=== PATIENT | male | born 1965 | race African-American/Black ===

== ENCOUNTER 2021-12-20 05:48 | Inpatient (IN) | payer SELFPAY ==
[~2021-12-20] VITALS: Ht 182.9 cm; Wt 59.9 kg
[2021-12-20] VITALS (42 sets, daily range): BP systolic 144–199; BP diastolic 80–124
[2021-12-20 06:11] LABS: HEMATOCRIT. 34.9 % (42.0-52.0); HEMOGLOBIN. 11.1 g/dL (14.0-18.0); MEAN CORPUSCULAR HEMOGLOBIN 26.2 pg (28.0-32.0); MEAN CORPUSCULAR VOLUME 82.9 fL (80.0-94.0); MEAN PLATELET VOLUME 9.6 fl (7.4-10.4); PLATELET 256 x1000/uL (130-400); RED BLOOD CELL COUNT 4.22 mill/uL (4.7-6.1); RED CELL DISTRIBUTION WIDTH 20.7 % (11.6-14.6)
[2021-12-20 06:14] LABS: CHLORIDE 108 mEq/L (98-107)
[2021-12-20] MEDS ORDERED: NITROGLYCERIN OINT 1GM/INCH UDPKT TD ONE (06:15)
[2021-12-20] MEDS ORDERED: LORAZEPAM 2MG/ML CPJ IV ONE (06:15)
[2021-12-20] MEDS ORDERED: METHYLPREDNISOLONE SOD SUCC 125 MG/2 ML VIAL IV ONE (06:15)
[2021-12-20 06:18] LABS: ETHANOL BLOOD < 10 mg/dL
[2021-12-20] MEDS ORDERED: VECURONIUM BROMIDE 10 MG/VIAL IV ONE ×2 (06:30→08:18)
[2021-12-20] MEDS ORDERED: NITROGLYCERIN 50MG PREMIX 250 ML IV ONE (06:30)
[2021-12-20] MEDS ORDERED: ETOMIDATE 2MG/ML 10ML VIAL IV ONE ×3 (06:30→08:18)
[2021-12-20 06:36] LABS: PLATELET ESTIMATE NORMAL
[2021-12-20 07:46] LABS: *AMPHETAMINES SCREEN URINE NEGATIVE (NEGATIVE); *BARBITURATES SCREEN URINE NEGATIVE (NEGATIVE); *BENZODIAZEPINES SCREEN URINE NEGATIVE (NEGATIVE); *COCAINE SCREEN URINE PRESUMTIVE POSITIVE (NEGATIVE); METHADONE URINE SCREEN NEGATIVE (NEGATIVE); OPIATES URINE SCREEN NEGATIVE (NEGATIVE)
[2021-12-20 07:47] LABS: CANNABINOID URINE SCREEN NEGATIVE (NEGATIVE); PHENCYCLIDINE URINE SCREEN NEGATIVE (NEGATIVE)
[2021-12-20 08:13] LABS: BG BASE EXCESS -0.2 mmol/L (-2.0-2.0); BG CARBOXYHEMOGLOBIN 0.7 % (0.5-1.5); BG DEOXYHEMOGLOBIN 0.3 % (0.0-5.0); BG FRACTION INSPIRED OXYGEN 100; BG HCO3 ACT 26.1 mmol/L (22.0-26.0); BG METHEMOGLOBIN 0.2 % (0.0-1.5); BG OXYGEN SATURATION 99.7 % (92.0-98.5); BG OXYHEMOGLOBIN 98.8 % (94.0-97.0); BG PCO2 50.9 mmHg (35.0-45.0); BG PH 7.328 (7.350-7.450); BG PO2 437.8 mmHg (75.0-100.0); BG SAMPLE SITE RIGHT RADIAL; BG VENT MODE VENT - AC
[2021-12-20] MEDS ORDERED: SODIUM CHLORIDE 0.9% 10ML VIAL ONE (08:18)
[2021-12-20] MEDS: PROPOFOL 10MG/ML 100ML 100 ML IV SCH ×2 (09:31→11:33)
[2021-12-20] MEDS ORDERED: IPRATROPIUM/ALBUTEROL 0.5-3(2.5)MG/3ML NEB HHN PRN (09:45)
[2021-12-20] MEDS ORDERED: PROPOFOL 10MG/ML 100ML 100 ML IV PRN (09:45)
[2021-12-20] MEDS ORDERED: FENTANYL CITRATE/PF 2,500 MCG in SODIUM CHLORIDE 0.9% 200 ML IV PRN (09:45)
[2021-12-20] MEDS: PANTOPRAZOLE SODIUM 40 MG/VIAL IV SCH (10:31)
[2021-12-20] MEDS: METHYLPREDNISOLONE SOD SUCC 40 MG/ML VIAL IV SCH ×2 (10:31→19:19)
[2021-12-20] MEDS ORDERED: NITROGLYCERIN 0.4MG TABLET SL SL PRN ×2 (10:45→11:45)
[2021-12-20] MEDS ORDERED: DEXT 5%/0.45% NACL 1000ML 1,000 ML IV SCH (10:45)
[2021-12-20] MEDS ORDERED: LEVOFLOXACIN 500MG PREMIX 100 ML IV SCH (10:45)
[2021-12-20] MEDS ORDERED: DOCUSATE SODIUM 100MG CAPSULE PO PRN ×2 (10:45→11:45)
[2021-12-20] MEDS ORDERED: CLONIDINE 0.1MG TABLET PO PRN ×2 (10:45→11:45)
[2021-12-20] MEDS ORDERED: ACETAMINOPHEN 325MG TABLET PO PRN ×4 (10:45→11:45)
[2021-12-20] MEDS ORDERED: GUAIFENESIN 200MG/10ML SUGAR FREE UDC PO PRN ×2 (10:45→11:45)
[2021-12-20] MEDS ORDERED: ONDANSETRON HCL 4MG/2ML INJ IV PRN ×2 (10:45→11:45)
[2021-12-20] MEDS ORDERED: MAGNESIUM/ALUMINUM HYDROXIDE/SIMETHICONE 30ML UDC PO PRN ×2 (10:45→11:45)
[2021-12-20 11:11] LABS: FOLIC ACID (FOLATE) SERUM > 20.00 ng/mL (>5.38)
[2021-12-20 11:20] LABS: VITAMIN B12 SERUM 286 pg/mL (211-911)
[2021-12-20] MEDS: DEXT 5%/0.45% NACL 1000ML 1,000 ML IV SCH ×2 (11:45→22:22)
[2021-12-20] MEDS ORDERED: DILTIAZEM HCL 60MG TABLET PO SCH (12:00)
[2021-12-20] MEDS: IPRATROPIUM/ALBUTEROL 0.5-3(2.5)MG/3ML NEB HHN SCH ×2 (14:29→20:46)
[2021-12-20] MEDS: DILTIAZEM HCL 60MG TABLET PO SCH ×2 (15:35→21:48)
[2021-12-20] MEDS: NITROGLYCERIN OINT 1GM/INCH UDPKT TD SCH ×2 (15:36→21:48)
[2021-12-20] MEDS: LEVOFLOXACIN 500MG PREMIX 100 ML IV SCH (15:36)
[2021-12-20] MEDS: ENOXAPARIN 80MG/0.8ML SYR SUBCUT SCH (15:36)
[2021-12-20] MEDS ORDERED: NICARDIPINE 100 MG in SODIUM CHLORIDE 0.9% 60 ML IV PRN (16:30)
[2021-12-20] MEDS: NICARDIPINE 50 MG in SODIUM CHLORIDE 0.9% 250 ML IV PRN ×2 (17:16→22:30)
[2021-12-20] MEDS: PROPOFOL 10MG/ML 100ML 100 ML IV PRN ×2 (18:03→21:55)
[2021-12-21] VITALS (96 sets, daily range): BP systolic 126–177; BP diastolic 71–128
[2021-12-21] MEDS: DEXT 5%/0.45% NACL 1000ML 1,000 ML IV SCH ×2 (01:18→12:00)
[2021-12-21] MEDS: IPRATROPIUM/ALBUTEROL 0.5-3(2.5)MG/3ML NEB HHN SCH ×4 (01:28→20:42)
[2021-12-21] MEDS: ENOXAPARIN 80MG/0.8ML SYR SUBCUT SCH ×2 (02:12→14:41)
[2021-12-21] MEDS: METHYLPREDNISOLONE SOD SUCC 40 MG/ML VIAL IV SCH ×3 (02:12→17:26)
[2021-12-21] MEDS: NICARDIPINE 50 MG in SODIUM CHLORIDE 0.9% 250 ML IV PRN ×5 (03:08→23:42)
[2021-12-21] MEDS: PROPOFOL 10MG/ML 100ML 100 ML IV PRN ×5 (04:14→22:20)
[2021-12-21] MEDS: DILTIAZEM HCL 60MG TABLET PO SCH ×4 (04:19→22:12)
[2021-12-21] MEDS: NITROGLYCERIN OINT 1GM/INCH UDPKT TD SCH ×3 (06:48→22:11)
[2021-12-21 08:22] LABS: HEMATOCRIT. 32.1 % (42.0-52.0); HEMOGLOBIN. 10.4 g/dL (14.0-18.0); MEAN CORPUSCULAR HEMOGLOBIN 26.4 pg (28.0-32.0); MEAN CORPUSCULAR VOLUME 81.7 fL (80.0-94.0); MEAN PLATELET VOLUME 10.4 fl (7.4-10.4); PLATELET 276 x1000/uL (130-400); RED BLOOD CELL COUNT 3.93 mill/uL (4.7-6.1); RED CELL DISTRIBUTION WIDTH 20.9 % (11.6-14.6)
[2021-12-21 08:34] LABS: PHOSPHORUS 2.9 mg/dL (2.5-4.9)
[2021-12-21 08:45] LABS: BG BASE EXCESS 0.4 mmol/L (-2.0-2.0); BG CARBOXYHEMOGLOBIN 0.3 % (0.5-1.5); BG DEOXYHEMOGLOBIN 1.6 % (0.0-5.0); BG FRACTION INSPIRED OXYGEN 100; BG HCO3 ACT 24.6 mmol/L (22.0-26.0); BG METHEMOGLOBIN 0.2 % (0.0-1.5); BG OXYGEN SATURATION 98.4 % (92.0-98.5); BG OXYHEMOGLOBIN 97.9 % (94.0-97.0); BG PCO2 38.2 mmHg (35.0-45.0); BG PH 7.427 (7.350-7.450); BG PO2 126.8 mmHg (75.0-100.0); BG VENT MODE VENT - AC
[2021-12-21] MEDS ORDERED: ASPIRIN 325MG EC TABLET PO SCH (09:00)
[2021-12-21 09:12] LABS: PLATELET ESTIMATE NORMAL
[2021-12-21] MEDS: PANTOPRAZOLE SODIUM 40 MG/VIAL IV SCH (10:28)
[2021-12-21] MEDS: ASPIRIN 325MG EC TABLET PO SCH (10:29)
[2021-12-21] MEDS: RISPERIDONE 0.5MG TABLET PO SCH (12:35)
[2021-12-21] MEDS ORDERED: FENTANYL CITRATE/PF 2,500 MCG in SODIUM CHLORIDE 0.9% 200 ML IV PRN (13:15)
[2021-12-21] MEDS: LEVOFLOXACIN 500MG PREMIX 100 ML IV SCH (14:32)
[2021-12-21] MEDS: MINOXIDIL 2.5MG TABLET PO SCH ×2 (14:33→22:11)
[2021-12-21] MEDS ORDERED: PROPOFOL 10MG/ML 100ML 100 ML IV PRN (15:00)
[2021-12-22] VITALS (92 sets, daily range): BP systolic 114–193; BP diastolic 63–106
[2021-12-22] MEDS: METHYLPREDNISOLONE SOD SUCC 40 MG/ML VIAL IV SCH ×3 (01:53→18:20)
[2021-12-22] MEDS: DEXT 5%/0.45% NACL 1000ML 1,000 ML IV SCH ×3 (01:55→22:44)
[2021-12-22] MEDS: IPRATROPIUM/ALBUTEROL 0.5-3(2.5)MG/3ML NEB HHN SCH ×4 (02:28→20:56)
[2021-12-22] MEDS: PROPOFOL 10MG/ML 100ML 100 ML IV PRN ×2 (03:24→07:58)
[2021-12-22] MEDS: DILTIAZEM HCL 60MG TABLET PO SCH ×4 (04:15→21:01)
[2021-12-22] MEDS: NICARDIPINE 50 MG in SODIUM CHLORIDE 0.9% 250 ML IV PRN ×3 (04:36→22:45)
[2021-12-22] MEDS: NITROGLYCERIN OINT 1GM/INCH UDPKT TD SCH ×3 (05:26→21:03)
[2021-12-22] MEDS: ENOXAPARIN 60MG/0.6ML SYR SUBCUT SCH ×2 (05:41→18:20)
[2021-12-22 08:27] LABS: BG BASE EXCESS -3.6 mmol/L (-2.0-2.0); BG CARBOXYHEMOGLOBIN 0.3 % (0.5-1.5); BG DEOXYHEMOGLOBIN 5.1 % (0.0-5.0); BG FRACTION INSPIRED OXYGEN 30; BG HCO3 ACT 21.9 mmol/L (22.0-26.0); BG METHEMOGLOBIN 0.2 % (0.0-1.5); BG OXYGEN SATURATION 94.9 % (92.0-98.5); BG OXYHEMOGLOBIN 94.4 % (94.0-97.0); BG PCO2 41.3 mmHg (35.0-45.0); BG PH 7.342 (7.350-7.450); BG PO2 83.1 mmHg (75.0-100.0); BG SAMPLE SITE RIGHT RADIAL; BG TOTAL HEMOGLOBIN 9.7 g/dL (12.0-18.0); BG VENT MODE VENT - AC
[2021-12-22] MEDS: THIAMINE HCL 100MG TABLET PO SCH (09:00)
[2021-12-22] MEDS: MULTIVITAMINS,THER W-MINERALS TABLET PO SCH (09:00)
[2021-12-22] MEDS: FOLIC ACID 1MG TABLET PO SCH (09:00)
[2021-12-22 09:16] LABS: HEMATOCRIT. 29.5 % (42.0-52.0); HEMOGLOBIN. 9.6 g/dL (14.0-18.0); MEAN CORPUSCULAR HEMOGLOBIN 26.2 pg (28.0-32.0); MEAN CORPUSCULAR VOLUME 80.7 fL (80.0-94.0); MEAN PLATELET VOLUME 9.9 fl (7.4-10.4); PLATELET 256 x1000/uL (130-400); RED BLOOD CELL COUNT 3.66 mill/uL (4.7-6.1); RED CELL DISTRIBUTION WIDTH 20.3 % (11.6-14.6)
[2021-12-22 10:41] LABS: PLATELET ESTIMATE NORMAL
[2021-12-22] MEDS: PANTOPRAZOLE SODIUM 40 MG/VIAL IV SCH (11:49)
[2021-12-22] MEDS: RISPERIDONE 0.5MG TABLET PO SCH (11:50)
[2021-12-22] MEDS: MINOXIDIL 2.5MG TABLET PO SCH ×2 (11:50→21:02)
[2021-12-22] MEDS: ASPIRIN 325MG EC TABLET PO SCH (11:51)
[2021-12-22] MEDS: LEVOFLOXACIN 250MG PREMIX 50 ML IV SCH (15:28)
[2021-12-22] MEDS: THROAT LOZENGES-BENZOCAINE/MENTH/CETYLPYRD CL LOZENGES MM PRN (15:29)
[2021-12-23] VITALS (91 sets, daily range): BP systolic 131–184; BP diastolic 58–118
[2021-12-23] MEDS: NICARDIPINE 50 MG in SODIUM CHLORIDE 0.9% 250 ML IV PRN ×6 (00:46→23:50)
[2021-12-23] MEDS: IPRATROPIUM/ALBUTEROL 0.5-3(2.5)MG/3ML NEB HHN SCH ×4 (02:43→18:00)
[2021-12-23] MEDS: METHYLPREDNISOLONE SOD SUCC 40 MG/ML VIAL IV SCH ×2 (04:34→23:50)
[2021-12-23] MEDS: DILTIAZEM HCL 60MG TABLET PO SCH ×3 (05:06→16:24)
[2021-12-23] MEDS: ENOXAPARIN 60MG/0.6ML SYR SUBCUT SCH ×2 (05:08→17:58)
[2021-12-23] MEDS: NITROGLYCERIN OINT 1GM/INCH UDPKT TD SCH ×3 (05:43→22:10)
[2021-12-23] MEDS: FOLIC ACID 1MG TABLET PO SCH (09:00)
[2021-12-23] MEDS: MULTIVITAMINS,THER W-MINERALS TABLET PO SCH (09:00)
[2021-12-23] MEDS: THIAMINE HCL 100MG TABLET PO SCH (09:00)
[2021-12-23] MEDS: PANTOPRAZOLE SODIUM 40 MG/VIAL IV SCH (10:52)
[2021-12-23] MEDS: RISPERIDONE 0.5MG TABLET PO SCH (10:53)
[2021-12-23] MEDS: ASPIRIN 325MG EC TABLET PO SCH (10:53)
[2021-12-23] MEDS: MINOXIDIL 2.5MG TABLET PO SCH ×2 (10:53→22:09)
[2021-12-23] MEDS: DEXT 5%/0.45% NACL 1000ML 1,000 ML IV SCH (10:54)
[2021-12-23] MEDS ORDERED: CLONIDINE 0.1MG TABLET PO PRN (11:15)
[2021-12-23] MEDS: CLONIDINE 0.3MG TABLET PO SCH ×2 (14:36→22:10)
[2021-12-23] MEDS: LEVOFLOXACIN 250MG PREMIX 50 ML IV SCH (14:36)
[2021-12-24] VITALS (64 sets, daily range): BP systolic 115–165; BP diastolic 46–80
[2021-12-24] MEDS: DILTIAZEM HCL 60MG TABLET PO SCH ×5 (04:00→22:41)
[2021-12-24] MEDS: NITROGLYCERIN OINT 1GM/INCH UDPKT TD SCH ×3 (05:49→22:43)
[2021-12-24] MEDS: CLONIDINE 0.3MG TABLET PO SCH ×3 (05:49→21:26)
[2021-12-24] MEDS: ENOXAPARIN 60MG/0.6ML SYR SUBCUT SCH ×2 (05:50→18:50)
[2021-12-24] MEDS: NICARDIPINE 50 MG in SODIUM CHLORIDE 0.9% 250 ML IV PRN (05:52)
[2021-12-24] MEDS: THROAT LOZENGES-BENZOCAINE/MENTH/CETYLPYRD CL LOZENGES MM PRN (06:01)
[2021-12-24] MEDS: IPRATROPIUM/ALBUTEROL 0.5-3(2.5)MG/3ML NEB HHN SCH ×4 (08:21→21:15)
[2021-12-24] MEDS: MINOXIDIL 2.5MG TABLET PO SCH ×2 (08:32→21:26)
[2021-12-24] MEDS: PANTOPRAZOLE SODIUM 40 MG/VIAL IV SCH (08:32)
[2021-12-24] MEDS: RISPERIDONE 0.5MG TABLET PO SCH (08:32)
[2021-12-24] MEDS: MULTIVITAMINS,THER W-MINERALS TABLET PO SCH (08:32)
[2021-12-24] MEDS: FOLIC ACID 1MG TABLET PO SCH (08:32)
[2021-12-24] MEDS: ASPIRIN 325MG EC TABLET PO SCH (08:33)
[2021-12-24] MEDS: THIAMINE HCL 100MG TABLET PO SCH (08:33)
[2021-12-24] MEDS: METHYLPREDNISOLONE SOD SUCC 40 MG/ML VIAL IV SCH (08:35)
[2021-12-24] MEDS: LEVOFLOXACIN 250MG PREMIX 50 ML IV SCH (13:20)
[2021-12-25] VITALS (13 sets, daily range): BP systolic 133–162; BP diastolic 61–80
[2021-12-25] MEDS: IPRATROPIUM/ALBUTEROL 0.5-3(2.5)MG/3ML NEB HHN SCH ×4 (01:40→20:55)
[2021-12-25] MEDS: DILTIAZEM HCL 60MG TABLET PO SCH ×4 (04:37→21:30)
[2021-12-25 06:09] LABS: HEMATOCRIT. 24.2 % (42.0-52.0); MEAN CORPUSCULAR HEMOGLOBIN 26.6 pg (28.0-32.0); MEAN CORPUSCULAR VOLUME 80.2 fL (80.0-94.0); MEAN PLATELET VOLUME 9.3 fl (7.4-10.4); PLATELET 188 x1000/uL (130-400); RED BLOOD CELL COUNT 3.01 mill/uL (4.7-6.1); RED CELL DISTRIBUTION WIDTH 19.7 % (11.6-14.6)
[2021-12-25] MEDS: CLONIDINE 0.3MG TABLET PO SCH ×3 (06:44→22:32)
[2021-12-25] MEDS: ENOXAPARIN 60MG/0.6ML SYR SUBCUT SCH (06:55)
[2021-12-25] MEDS: NITROGLYCERIN OINT 1GM/INCH UDPKT TD SCH ×3 (06:55→21:31)
[2021-12-25] MEDS ORDERED: METHYLPREDNISOLONE SOD SUCC 40 MG/ML VIAL IV SCH (09:00)
[2021-12-25] MEDS: PANTOPRAZOLE SODIUM 40 MG/VIAL IV SCH (09:18)
[2021-12-25] MEDS: FOLIC ACID 1MG TABLET PO SCH (09:18)
[2021-12-25] MEDS: ASPIRIN 325MG EC TABLET PO SCH (09:18)
[2021-12-25] MEDS: MULTIVITAMINS,THER W-MINERALS TABLET PO SCH (09:33)
[2021-12-25] MEDS: THIAMINE HCL 100MG TABLET PO SCH (09:33)
[2021-12-25] MEDS: RISPERIDONE 0.5MG TABLET PO SCH (11:21)
[2021-12-25] MEDS: MINOXIDIL 2.5MG TABLET PO SCH ×2 (11:22→21:29)
[2021-12-25 15:19] LABS: PLATELET ESTIMATE NORMAL
[2021-12-26] VITALS (10 sets, daily range): BP systolic 130–156; BP diastolic 53–75
[2021-12-26] MEDS: IPRATROPIUM/ALBUTEROL 0.5-3(2.5)MG/3ML NEB HHN SCH ×3 (00:49→16:33)
[2021-12-26] MEDS: DILTIAZEM HCL 60MG TABLET PO SCH ×3 (04:32→16:53)
[2021-12-26] MEDS: NITROGLYCERIN OINT 1GM/INCH UDPKT TD SCH ×2 (05:46→14:58)
[2021-12-26] MEDS: CLONIDINE 0.3MG TABLET PO SCH ×2 (05:47→14:58)
[2021-12-26] MEDS ORDERED: PREDNISONE 10MG TABLET PO SCH (09:00)
[2021-12-26] MEDS ORDERED: ENOXAPARIN 60MG/0.6ML SYR SUBCUT SCH (09:00)
[2021-12-26] MEDS: PANTOPRAZOLE SODIUM 40 MG/VIAL IV SCH (09:09)
[2021-12-26] MEDS: MINOXIDIL 2.5MG TABLET PO SCH (09:09)
[2021-12-26] MEDS: ASPIRIN 325MG EC TABLET PO SCH (09:09)
[2021-12-26] MEDS: RISPERIDONE 0.5MG TABLET PO SCH (09:10)
[2021-12-26] MEDS: THIAMINE HCL 100MG TABLET PO SCH (09:10)
[2021-12-26] MEDS: MULTIVITAMINS,THER W-MINERALS TABLET PO SCH (09:10)
[2021-12-26] MEDS: FOLIC ACID 1MG TABLET PO SCH (09:11)
== END 2021-12-26 19:32 | disposition left against medical advice (07) | DRG 816 ==
LOC: ER 05:48 → CVICU 09:02 → ENRESERV 11:12 → ER 11:37 → CVICU 13:08 → 5EST 12-24 22:08
PROVIDERS: ADMIT Internal Medicine; ATTEND Internal Medicine
PROC: 5A1945Z Respiratory Ventilation, 24-96 Consecutive Hours (ICD-10-PCS; principal; 2021-12-20)
PROC: 0BH17EZ Insertion of Endotracheal Airway into Trachea, Via Natural or Artificial Opening (ICD-10-PCS; 2021-12-20)
DX: T40.5X1A Poisoning by cocaine, accidental (unintentional), initial encounter (principal); J96.01 Acute respiratory failure with hypoxia; G92.8 Other toxic encephalopathy; J96.02 Acute respiratory failure with hypercapnia; J44.1 Chronic obstructive pulmonary disease with (acute) exacerbation; I50.9 Heart failure, unspecified; J68.0 Bronchitis and pneumonitis due to chemicals, gases, fumes and vapors; I11.0 Hypertensive heart disease with heart failure; D63.8 Anemia in other chronic diseases classified elsewhere; I16.1 Hypertensive emergency; F14.10 Cocaine abuse, uncomplicated; Z53.29 Procedure and treatment not carried out because of patient's decision for other reasons; Z20.822 Contact with and (suspected) exposure to COVID-19; R74.01 Elevation of levels of liver transaminase levels; N28.9 Disorder of kidney and ureter, unspecified; Y92.89 Other specified places as the place of occurrence of the external cause
CPT/HCPCS: 36415; 36600; 71045; 80048; 80053; 80061; 80305; 80320; 82375; 82607; 82746; 82805; 83036; 83540; 83550; 83735; 83880; 84100; 84478; 84484; 85025; 85379; 87070; 87426; 92610; 93005; 93306; 93970; 94002; 94003; 94640; 97162; 97165; 99291; C9113; J1650; J1956; J2060; J2405; J2704; J2920; J3010; J3490; J7040; J7050; J7512; G0480